=== PATIENT | female | born 2005 | race Caucasian/White ===

== ENCOUNTER 2023-09-21 04:38 | Emergency (ER) | payer OTHER ==
[~2023-09-21] VITALS: Ht 175.2 cm; Wt 68.0 kg
[2023-09-21] MEDS ORDERED: HAILEY FE PO (04:52)
[2023-09-21] MEDS ORDERED: FAMOTIDINE 50 ML IV ONE (05:10)
[2023-09-21] MEDS ORDERED: Loperamide Hydrochloride 2 MG CAP PO ONE (05:10)
[2023-09-21] MEDS ORDERED: Ondansetron Hydrochloride 4 MG/2 ML VIAL IV ONE (05:10)
[2023-09-21 05:18] LABS: BILIRUBIN 2+ (Negative); BLOOD Negative (Negative); CLARITY Cloudy (Clear); COLOR Dark Yellow (Yellow); GLUCOSE Negative (Negative); KETONE Trace (Negative); LEUKO ESTERASE 1+ (Negative); NITRITE Negative (Negative); PH 5.5 (4.5-8.0); SPECIFIC GRAVITY >= 1.030 (1.001-1.030)
[2023-09-21 05:30] LABS: BACTERIA 1+; RBC 0-2 rbc/hpf (0-2); WBC 16-20 wbc/hpf (0-5)
[2023-09-21 05:31] LABS: MUCOUS 1+
[2023-09-21] MEDS ORDERED: ONDANSETRON4 MG SL (05:42)
[2023-09-21] MEDS ORDERED: ACID-PEP20 MG PO (05:42)
[2023-09-21 05:45] LABS: ALKALINE PHOSPHATASE 51 U/L (46-116); BUN 13 mg/dl (9-23); CHLORIDE 104 mmol/L (98-107); LIPASE 61 U/L (12-53); POTASSIUM 3.6 mmol/L (3.4-5.1); SGPT/ALT 43 U/L (5-49); TOTAL PROTEIN 7.8 gm/dL (6.0-8.0)
[2023-09-21 05:51] LABS: B-hCG (QUALITATIVE) NEGATIVE (NEGATIVE)
[2023-09-21 06:21] LABS: BASO # 0.1 10*3/uL (0.0-0.1); BASO % 0.3 % (0.0-1.0); EOS # 0.3 10*3/uL (0.0-0.4); EOS % 1.4 % (1.0-4.0); HEMATOCRIT 47.1 % (37.0-47.0); LYMPH # 1.6 10*3/uL (1.3-4.4); LYMPH % 8.9 % (27.0-41.0); MEAN CELL VOLUME 88.2 fl (81.0-99.0); MEAN CORPUSCULAR HGB 31.8 pg (27.0-31.0); MEAN CORPUSCULAR HGB CONC 36.1 g/dl (33.0-37.0); MEAN PLATELET VOLUME 10.3 fl (9.6-12.3); MONO % 5.6 % (3.0-9.0); NEUT # 15.1 10*3/uL (2.3-7.9); NEUT % 83.4 % (47.0-73.0); PLATELET COUNT AUTOMATED 348 10*3/uL (130-400); RED BLOOD COUNT 5.34 10*6/uL (4.10-5.10); RED CELL DISTRI WIDTH 11.8 % (0-14.5); WHITE BLOOD COUNT 18.1 10*3/uL (4.8-10.8)
[2023-09-21] MEDS ORDERED: CEFDINIR300 MG PO (07:09)
[2023-09-21] MEDS ORDERED: Ceftriaxone Sodium 1 GM/10 ML SYR IV ONE (07:20)
== END 2023-09-21 08:02 | disposition home or self-care (01) ==
LOC: ED 04:38
PROVIDERS: Emergency Medicine
DX: K52.9 Noninfective gastroenteritis and colitis, unspecified (principal); R55 Syncope and collapse; Z79.899 Other long term (current) drug therapy; Z87.42 Personal history of other diseases of the female genital tract